=== PATIENT | male | born 1985 | race Two or more races ===

== ENCOUNTER 2024-08-26 22:10 | Emergency (ER) | payer MEDICARE, MEDICAID, SELFPAY ==
[2024-08-26 23:13] VITALS: BP 145/80; PULSE 76; RESP 18; TEMP 36.4; O2SAT 96; BMI 27.4
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
== END 2024-08-26 23:43 | disposition home or self-care (01) ==
LOC: SERX 08-27 06:00
PROVIDERS: Emergency Provider Emergency Medicine
DX: T83.091A Other mechanical complication of indwelling urethral catheter, initial encounter (principal); Y73.1 Therapeutic (nonsurgical) and rehabilitative gastroenterology and urology devices associated with adverse incidents; Y84.6 Urinary catheterization as the cause of abnormal reaction of the patient, or of later complication, without mention of misadventure at the time of the procedure
CPT/HCPCS: 51702; 99283

== ENCOUNTER → 2024-09-08 | Outpatient (CLI) | payer MEDICARE, MEDICAID, SELFPAY | END | disposition home or self-care (01) | PROVIDERS: PCP Physician Assistant; Referring Provider Physician Assistant; Visit Provider Student in an Organized Health Care Education/Training Program | DX: L89.612 Pressure ulcer of right heel, stage 2 (principal); L89.324 Pressure ulcer of left buttock, stage 4; L89.894 Pressure ulcer of other site, stage 4; G82.20 Paraplegia, unspecified; F29 Unspecified psychosis not due to a substance or known physiological condition; F17.200 Nicotine dependence, unspecified, uncomplicated | CPT/HCPCS: 11042 ==

== ENCOUNTER → 2024-10-06 | Outpatient (CLI) | payer MEDICARE, MEDICAID, SELFPAY | END | disposition home or self-care (01) | LOC: SWHD 13:02 | PROVIDERS: PCP Physician Assistant; Referring Provider Physician Assistant; Visit Provider Surgery | DX: L89.612 Pressure ulcer of right heel, stage 2 (principal); L89.324 Pressure ulcer of left buttock, stage 4; L89.894 Pressure ulcer of other site, stage 4; G82.20 Paraplegia, unspecified; F29 Unspecified psychosis not due to a substance or known physiological condition; F17.200 Nicotine dependence, unspecified, uncomplicated | CPT/HCPCS: 97597; A9270 ==

== ENCOUNTER → 2024-11-03 | Outpatient (CLI) | payer MEDICARE, MEDICAID, SELFPAY | END | disposition home or self-care (01) | LOC: SWHD 13:03 | PROVIDERS: PCP Physician Assistant; Referring Provider Physician Assistant; Visit Provider Student in an Organized Health Care Education/Training Program | DX: L89.612 Pressure ulcer of right heel, stage 2 (principal); L89.324 Pressure ulcer of left buttock, stage 4; L89.894 Pressure ulcer of other site, stage 4; F29 Unspecified psychosis not due to a substance or known physiological condition; F17.200 Nicotine dependence, unspecified, uncomplicated | CPT/HCPCS: 97597 ==

== ENCOUNTER → 2024-12-01 | Outpatient (CLI) | payer MEDICARE, MEDICAID, SELFPAY | END | disposition home or self-care (01) | LOC: SWHD 13:24 | PROVIDERS: PCP Physician Assistant; Referring Provider Physician Assistant; Visit Provider Surgery | DX: L89.612 Pressure ulcer of right heel, stage 2 (principal); L89.324 Pressure ulcer of left buttock, stage 4; L89.894 Pressure ulcer of other site, stage 4; F29 Unspecified psychosis not due to a substance or known physiological condition; F17.200 Nicotine dependence, unspecified, uncomplicated | CPT/HCPCS: 11042; 97597 ==

== ENCOUNTER → 2024-12-29 | Outpatient (CLI) | payer MEDICARE, MEDICAID, SELFPAY | END | disposition home or self-care (01) | LOC: SWHD 13:28 | PROVIDERS: PCP Physician Assistant; Referring Provider Physician Assistant; Visit Provider Student in an Organized Health Care Education/Training Program | DX: L89.324 Pressure ulcer of left buttock, stage 4 (principal); L89.894 Pressure ulcer of other site, stage 4; G82.20 Paraplegia, unspecified; F17.200 Nicotine dependence, unspecified, uncomplicated | CPT/HCPCS: 97597 ==

== ENCOUNTER → 2025-01-26 | Outpatient (CLI) | payer MEDICARE, MEDICAID, SELFPAY | END | disposition home or self-care (01) | LOC: SWHD 13:23 | PROVIDERS: PCP Physician Assistant; Referring Provider Physician Assistant; Visit Provider Student in an Organized Health Care Education/Training Program | DX: L89.324 Pressure ulcer of left buttock, stage 4 (principal); L89.894 Pressure ulcer of other site, stage 4; L89.612 Pressure ulcer of right heel, stage 2; G82.20 Paraplegia, unspecified; F17.200 Nicotine dependence, unspecified, uncomplicated | CPT/HCPCS: 97597; A9270 ==

== ENCOUNTER → 2025-03-02 | Outpatient (CLI) | payer MEDICARE, MEDICAID, SELFPAY | END | disposition home or self-care (01) | LOC: SWHD 13:45 | PROVIDERS: PCP Physician Assistant; Referring Provider Physician Assistant; Visit Provider Student in an Organized Health Care Education/Training Program | DX: L89.324 Pressure ulcer of left buttock, stage 4 (principal); L89.894 Pressure ulcer of other site, stage 4; L89.612 Pressure ulcer of right heel, stage 2; G82.20 Paraplegia, unspecified; F17.200 Nicotine dependence, unspecified, uncomplicated | CPT/HCPCS: 97597; 11042; A9270 ==

== ENCOUNTER → 2025-03-30 | Outpatient (CLI) | payer MEDICARE, MEDICAID, SELFPAY | END | disposition home or self-care (01) | LOC: SWHD 13:26 | PROVIDERS: PCP Physician Assistant; Referring Provider Physician Assistant; Visit Provider Student in an Organized Health Care Education/Training Program | DX: L89.324 Pressure ulcer of left buttock, stage 4 (principal); L89.894 Pressure ulcer of other site, stage 4; L89.612 Pressure ulcer of right heel, stage 2; G82.20 Paraplegia, unspecified; F17.200 Nicotine dependence, unspecified, uncomplicated | CPT/HCPCS: 97597; 11042; A9270 ==

== ENCOUNTER → 2025-04-13 | Outpatient (CLI) | payer MEDICARE, MEDICAID, SELFPAY | END | disposition home or self-care (01) | LOC: SWHD 13:15 | PROVIDERS: PCP Physician Assistant; Referring Provider Physician Assistant; Visit Provider Student in an Organized Health Care Education/Training Program | DX: L89.324 Pressure ulcer of left buttock, stage 4 (principal); L89.894 Pressure ulcer of other site, stage 4; L89.612 Pressure ulcer of right heel, stage 2; G82.20 Paraplegia, unspecified; F17.200 Nicotine dependence, unspecified, uncomplicated | CPT/HCPCS: 97597; 11042; A9270 ==

== ENCOUNTER → 2025-04-20 | Outpatient (CLI) | payer MEDICARE, MEDICAID, SELFPAY | END | disposition home or self-care (01) | LOC: SWHD 14:32 | PROVIDERS: PCP Physician Assistant; Referring Provider Physician Assistant; Visit Provider Student in an Organized Health Care Education/Training Program | DX: L89.324 Pressure ulcer of left buttock, stage 4 (principal); L89.894 Pressure ulcer of other site, stage 4; L89.612 Pressure ulcer of right heel, stage 2; G82.20 Paraplegia, unspecified; F17.200 Nicotine dependence, unspecified, uncomplicated | CPT/HCPCS: 97597 ==

== ENCOUNTER → 2025-04-27 | Outpatient (CLI) | payer MEDICARE, MEDICAID, SELFPAY | END | disposition home or self-care (01) | LOC: SWHD 14:15 | PROVIDERS: PCP Physician Assistant; Referring Provider Physician Assistant; Visit Provider Surgery | DX: L89.324 Pressure ulcer of left buttock, stage 4 (principal); L89.894 Pressure ulcer of other site, stage 4; L89.612 Pressure ulcer of right heel, stage 2; G82.20 Paraplegia, unspecified; F17.200 Nicotine dependence, unspecified, uncomplicated | CPT/HCPCS: 11042 ==

== ENCOUNTER → 2025-05-11 | Outpatient (CLI) | payer MEDICARE, MEDICAID, SELFPAY | END | disposition home or self-care (01) | LOC: SWHD 10:46 | PROVIDERS: PCP Physician Assistant; Referring Provider Physician Assistant; Visit Provider Student in an Organized Health Care Education/Training Program | DX: L89.324 Pressure ulcer of left buttock, stage 4 (principal); L89.894 Pressure ulcer of other site, stage 4; L89.612 Pressure ulcer of right heel, stage 2; G82.20 Paraplegia, unspecified; F17.200 Nicotine dependence, unspecified, uncomplicated | CPT/HCPCS: 11042 ==

== ENCOUNTER → 2025-06-08 | Outpatient (CLI) | payer MEDICARE, MEDICAID, SELFPAY | END | disposition home or self-care (01) | LOC: SWHD 10:50 | PROVIDERS: PCP Physician Assistant; Referring Provider Physician Assistant; Visit Provider Surgery | DX: L89.322 Pressure ulcer of left buttock, stage 2 (principal); L89.894 Pressure ulcer of other site, stage 4; L89.314 Pressure ulcer of right buttock, stage 4; G82.20 Paraplegia, unspecified; F17.200 Nicotine dependence, unspecified, uncomplicated | CPT/HCPCS: 97597; A9270 ==

== ENCOUNTER → 2025-06-22 | Outpatient (CLI) | payer MEDICARE, MEDICAID, SELFPAY | END | disposition home or self-care (01) | LOC: SWHD 10:48 | PROVIDERS: PCP Physician Assistant; Referring Provider Physician Assistant; Visit Provider Student in an Organized Health Care Education/Training Program | DX: L89.322 Pressure ulcer of left buttock, stage 2 (principal); L89.894 Pressure ulcer of other site, stage 4; L89.314 Pressure ulcer of right buttock, stage 4; G82.20 Paraplegia, unspecified; F17.200 Nicotine dependence, unspecified, uncomplicated | CPT/HCPCS: 97597; A9270 ==

== ENCOUNTER → 2025-07-17 | Outpatient (CLI) | payer MEDICARE, MEDICAID, SELFPAY | END | disposition home or self-care (01) | LOC: SWHD 13:12 | PROVIDERS: PCP Physician Assistant; Referring Provider Physician Assistant; Visit Provider Surgery | DX: L89.322 Pressure ulcer of left buttock, stage 2 (principal); L89.214 Pressure ulcer of right hip, stage 4; L89.314 Pressure ulcer of right buttock, stage 4; G82.20 Paraplegia, unspecified; F17.200 Nicotine dependence, unspecified, uncomplicated; F99 Mental disorder, not otherwise specified | CPT/HCPCS: 99215; A9270; G0463 ==

== ENCOUNTER → 2025-08-07 | Outpatient (CLI) | payer MEDICARE, MEDICAID, SELFPAY | END | disposition home or self-care (01) | LOC: SWHD 13:13 | PROVIDERS: Visit Provider Surgery | DX: L89.322 Pressure ulcer of left buttock, stage 2 (principal); L89.214 Pressure ulcer of right hip, stage 4; L89.314 Pressure ulcer of right buttock, stage 4; G82.20 Paraplegia, unspecified; F17.200 Nicotine dependence, unspecified, uncomplicated; F99 Mental disorder, not otherwise specified | CPT/HCPCS: 97597; A9270 ==

== ENCOUNTER → 2025-08-28 | Outpatient (CLI) | payer MEDICARE, MEDICAID, SELFPAY | END | disposition home or self-care (01) | LOC: SWHD 13:22 | PROVIDERS: Visit Provider Surgery | DX: L89.322 Pressure ulcer of left buttock, stage 2 (principal); L89.314 Pressure ulcer of right buttock, stage 4; L89.214 Pressure ulcer of right hip, stage 4; G82.20 Paraplegia, unspecified; F17.200 Nicotine dependence, unspecified, uncomplicated; F99 Mental disorder, not otherwise specified | CPT/HCPCS: 11042; A9270 ==

== ENCOUNTER → 2025-09-18 | Outpatient (CLI) | payer MEDICARE, MEDICAID, SELFPAY | END | disposition home or self-care (01) | LOC: SWHD 14:23 | PROVIDERS: PCP Internal Medicine Critical Care Medicine; Referring Provider Internal Medicine Critical Care Medicine; Visit Provider Surgery | DX: L89.322 Pressure ulcer of left buttock, stage 2 (principal); L89.314 Pressure ulcer of right buttock, stage 4; L89.214 Pressure ulcer of right hip, stage 4; G82.20 Paraplegia, unspecified; F17.200 Nicotine dependence, unspecified, uncomplicated; F99 Mental disorder, not otherwise specified | CPT/HCPCS: 97597 ==